=== PATIENT | female | born 1945 | race Hispanic/Latino ===

== ENCOUNTER 2016-08-31 12:43 | Emergency (ER) | payer MEDICARE, OTHER ==
[~2016-08-31] VITALS: Ht 152.4 cm; Wt 62.6 kg
[~2016-08-31 12:43] MED LIST: ACTONEL35 MG PO; ASPIR 8181 MG PO; CELLCEPT250 MG PO; MAGNESIUM OXID400 MG PO; MULTIVITAMINS1 EAC7 PO; PREDNISONE5 MG PO; PROGRAF1 MG PO; PROTONIX40 MG PO; TACROLIMUS PO
[2016-08-31] MEDS ORDERED: KETOROLAC TROME10 MG PO (13:37)
--- NOTE | 2016-09-01 14:23 | EKG ---
[facility] [address] [facility] [place], [place] [address] Signed Normal sinus rhythm Normal ECG No previous ECGs available Confirmed by ALISIA GALLEGOS MD ([id number]) on 09/01/2016 2:23:08 PM Electronically Signed By: ALISIA GALLEGOS MD 09/01/16 1423 PATIENT NAME: JASMYN CAMARENALUAN Bañuelos Electrocardiogram DATE OF : 41 PHYSICIAN: ALISIA GALLEGOS MD REPORT #: [id number] REPORT IS CONFIDENTIAL AND NOT TO BE RELEASED WITHOUT AUTHORIZATION
[2017-02-20] MEDS ORDERED: VITAMIN D5000 UNIT PO (12:07)
== END 2016-08-31 13:55 | disposition home or self-care (01) ==
LOC: ED 12:43
DX: R07.81 Pleurodynia (principal); M25.511 Pain in right shoulder; Q61.3 Polycystic kidney, unspecified; Z90.49 Acquired absence of other specified parts of digestive tract; Z91.040 Latex allergy status; Z88.8 Allergy status to other drugs, medicaments and biological substances; Z79.899 Other long term (current) drug therapy; Z79.82 Long term (current) use of aspirin; Z94.0 Kidney transplant status; Z90.5 Acquired absence of kidney
CPT/HCPCS: 71010; 93005; 93010; 99283

== ENCOUNTER 2016-09-02 20:34 | Emergency (ER) | payer MEDICARE, OTHER ==
[~2016-09-02] VITALS: Ht 152.4 cm; Wt 63.0 kg
[~2016-09-02 20:34] MED LIST changes: +KETOROLAC TROME10 MG PO
[2016-09-02] MEDS ORDERED: VALACYCLOVIR1000 MG PO (22:37)
[2016-09-02] MEDS ORDERED: NORCO 5-325 TA1 EACH PO (22:37)
[2017-02-20] MEDS ORDERED: VITAMIN D5000 UNIT PO (12:07)
== END 2016-09-02 23:25 | disposition home or self-care (01) ==
LOC: ED 20:34
DX: B02.9 Zoster without complications (principal); D89.9 Disorder involving the immune mechanism, unspecified; Z94.0 Kidney transplant status; Z90.5 Acquired absence of kidney; Z90.49 Acquired absence of other specified parts of digestive tract; Z91.040 Latex allergy status; Z88.8 Allergy status to other drugs, medicaments and biological substances; Z79.82 Long term (current) use of aspirin; Z79.899 Other long term (current) drug therapy
CPT/HCPCS: 99283

== ENCOUNTER 2021-11-20 14:00 | Emergency (ER) | payer MEDICARE, OTHER ==
[~2021-11-20] VITALS: Ht 152.4 cm; Wt 62.4 kg
[~2021-11-20 14:00] MED LIST changes: +HYDROCODON-ACE1 EA10 PO; +NORCO 5-325 TA1 EACH PO; +VALACYCLOVIR1000 MG PO; +VITAMIN D5000 UNIT PO
--- OUTSIDE RECORDS SUMMARY | 2021-11-20 14:02 | XMS ---
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 E[facility] VISIT COUNT (12 MO.) 2 [facility] TOTAL 2 NOTE: Visits indicate total known visits. ED/UCC VISIT TRACKING (12 MO.) 11/20/2021 14:01 [facility] [place] TYPE: Emergency COMPLAINT: - R SIDE ABD PAIN 11/15/2021 12:57 [facility] [place] TYPE: Emergency COMPLAINT: - WAIST UP PAIN DIAGNOSES: - Latex allergy status - Allergy status to other drugs, medicaments and biological substances - Pain in right shoulder - Pain in left shoulder - Cervicalgia INPATIENT VISIT TRACKING (12 MO.) No inpatient visits to display in this time frame [id number]
[2021-11-20] MEDS ORDERED: HYDROCODON-ACE1 EA10 PO (18:36)
== END 2021-11-20 18:56 | disposition home or self-care (01) ==
LOC: ED 14:00
DX: K59.00 Constipation, unspecified (principal); R10.13 Epigastric pain; M54.50 Low back pain, unspecified; Z91.040 Latex allergy status; Z88.8 Allergy status to other drugs, medicaments and biological substances; Z79.899 Other long term (current) drug therapy; Z79.82 Long term (current) use of aspirin
CPT/HCPCS: 36415; 74176; 80053; 81001; 83605; 83690; 85025; 96374; 96375; 99284-25; J2270; J2405; J7030